=== PATIENT | female | born 1950 | race Caucasian/White ===

== ENCOUNTER 2017-10-05 10:20 | Emergency (ER) | payer MEDICARE, BC ==
[2017-10-05] MEDS: SODIUM CHLORIDE 0.9% FLUSH 10 ML SOL IV PRN ×2 (10:25→12:15)
[2017-10-05] MEDS ORDERED: SODIUM CHLORIDE 0.9% 1000ML 1,000 ML IV ONE ×2 (10:30→12:25)
[2017-10-05 10:31] LABS: BASOPHILS % (AUTO) 1 % (0-3); EOSINOPHILS % (AUTO) 1 % (0-9); HEMATOCRIT 32 % (35-47); MEAN CORPUSCULAR HGB CONC 33.5 gm/dl (32.0-36.0); MONOCYTES % (AUTO) 7.1 % (0-12); NEUTROPHILS % (AUTO) 57.8 % (37-80)
[2017-10-05 10:35] LABS: MEAN CORPUSCULAR VOLUME 81 fL (81-99)
[2017-10-05] MEDS ORDERED: DILTIAZEM 5 MG/ML SOL IV ONE ×4 (10:42→16:05)
[2017-10-05 10:51] LABS: CALCIUM 8.8 mg/dl (8.5-10.1); THYROID STIMULATING HORMONE 1.15 uIU/ml (0.358-3.740)
[2017-10-05] MEDS ORDERED: METOPROLOL TARTRATE 25 MG TAB PO ONE (11:45)
[2017-10-05] MEDS ORDERED: METOPROLOL TARTRATE 25 MG TAB ONE (11:47)
[2017-10-05] MEDS ORDERED: METOPROLOL TARTRATE 5 MG/5 ML SOL IV ONE ×2 (12:07→12:09)
[2017-10-05 14:49] LABS: APPEARANCE,URINE Clear; BILIRUBIN,URINE NEGATIVE (NEGATIVE); COLOR,URINE Yellow; GLUCOSE, URINE (UA) NEGATIVE (NEGATIVE); KETONES,URINE NEGATIVE (NEGATIVE); LEUKOCYTE ESTERASE ,URINE NEGATIVE (NEGATIVE); NITRATE,URINE NEGATIVE (NEGATIVE); OCCULT BLOOD,URINE TRACE LYSED (NEG-TRACE); PH,URINE 5.5; UROBILINOGEN,URINE 0.2 (0.2-1.0 EU)
[2017-10-05 15:07] LABS: RBC,URINE 0-2 (0-3AV/HPF); WBC,URINE 0-2 (0-5AV/HPF)
[2017-10-05] MEDS ORDERED: DILTIAZEM 5 MG/ML 125 MG in SODIUM CHLORIDE 0.9% 100 ML 100 ML IV SCH (16:15)
[2017-10-05 16:32] VITALS: TEMP 97.9
[2017-10-05] MEDS ORDERED: SODIUM CHLORIDE 0.9% 500 ML 500 ML IV ONE (17:00)
[2017-10-05 17:18] VITALS: PULSE 95
[2017-10-05 17:38] VITALS: O2SAT 100
[2017-10-05 18:22] VITALS: BP 117/83; RESP 16
== END 2017-10-05 18:00 | disposition short-term general hospital (02) | DRG 310 ==
LOC: ED 10:20
DX: I47.1 Supraventricular tachycardia (principal); I48.91 Unspecified atrial fibrillation; R06.02 Shortness of breath; R79.89 Other specified abnormal findings of blood chemistry
CPT/HCPCS: 36415; 80048; 81001; 82550; 83880; 84443; 84484; 85025; 93005; 96365; 96366; 96374; 96375; 99285; 99291

== ENCOUNTER 2018-05-29 11:02 | Inpatient (IN) | payer MEDICARE, BC ==
[2018-05-29] MEDS ORDERED: DILTIAZEM 5 MG/ML SOL IV ONE ×5 (11:09→11:37)
[2018-05-29 11:15] LABS: BASOPHILS % (AUTO) 1 % (0-3); EOSINOPHILS % (AUTO) 1 % (0-9); HEMATOCRIT 32 % (35-47); HEMOGLOBIN 9.8 gm/dl (12.0-15.5); LYMPHOCYTES % (AUTO) 20.95 % (10-50); MEAN CORPUSCULAR HEMOGLOBIN 24.2 pg (27.0-32.0); MONOCYTES % (AUTO) 7.2 % (0-12); NEUTROPHILS % (AUTO) 69.4 % (37-80)
[2018-05-29 11:28] LABS: MEAN CORPUSCULAR VOLUME 78 fL (81-99)
[2018-05-29 11:37] LABS: ANISOCYTOSIS MOD AMT; CALCIUM 8.3 mg/dl (8.5-10.1); CARBON DIOXIDE 24.9 mEq/L (21-32); CREATININE 0.86 mg/dl (0.60-1.00); TROP I 0.06 ng/ml (0.000-0.056)
[2018-05-29] MEDS: DILTIAZEM 5 MG/ML 125 MG in SODIUM CHLORIDE 0.9% 100 ML 100 ML IV SCH ×2 (11:47→20:41)
[2018-05-29] MEDS ORDERED: SODIUM CHLORIDE 0.9% FLUSH 10 ML SOL IV PRN (12:03)
[2018-05-29] MEDS ORDERED: PATIENT EDUCATION 1 MISC PRN (20:20)
[2018-05-29] MEDS ORDERED: RIVAROXABAN 10 MG TAB PO ONE (20:48)
[2018-05-29] MEDS ORDERED: RIVAROXABAN 20 MG TAB PO SCH (21:00)
[2018-05-29] MEDS ORDERED: METOPROLOL SUCCINATE 50 MG ER TAB PO SCH (21:00)
[2018-05-29] MEDS ORDERED: ALLOPURINOL 100 MG TAB PO SCH (21:00)
[2018-05-30] MEDS: DILTIAZEM 5 MG/ML 125 MG in SODIUM CHLORIDE 0.9% 100 ML 100 ML IV SCH (04:12)
[2018-05-30 04:18] VITALS: RESP 20
[2018-05-30 09:59] VITALS: TEMP 97.5
[2018-05-30] MEDS ORDERED: SODIUM CHLORIDE 0.9% 1000ML 1,000 ML IV ONE (12:53)
[2018-05-30 13:07] VITALS: BP 112/88; PULSE 105; O2SAT 97
[2018-05-30] MEDS ORDERED: DILTIAZEM 5 MG/ML SOL IV ONE (13:44)
[2018-05-30] MEDS ORDERED: DILTIAZEM IV SCH (14:00)
[2018-05-30] MEDS ORDERED: SODIUM CHLORIDE 0.9% IV SCH (14:00)
[2018-05-30] MEDS ORDERED: RIVAROXABAN 10 MG TAB PO SCH (21:00)
== END 2018-05-30 13:55 | disposition short-term general hospital (02) | DRG 310 ==
LOC: ED 11:02 → ACUTE CARE 13:12 → ED 13:12
PROVIDERS: ADMIT Family Medicine; ATTEND Family Medicine
DX: I48.91 Unspecified atrial fibrillation (principal)
CPT/HCPCS: 36415; 71045; 80048; 84484; 85025; 93005; 93012; 96365; 96374; 99283; 99285; A9270-GY; J3490

== ENCOUNTER 2019-03-20 10:02 | Emergency (ER) | payer BC, MEDICARE, OTHER ==
[2019-03-20] MEDS ORDERED: ADENOSINE 3 MG/ML SOL IV ONE ×2 (10:39→10:43)
[2019-03-20] MEDS ORDERED: ADENOSINE 3 MG/ML SOL IV PRN (10:39)
[2019-03-20 10:46] LABS: BASOPHILS % (AUTO) 1 % (0-3); EOSINOPHILS % (AUTO) 1 % (0-9); HEMATOCRIT 37 % (35-47); HEMOGLOBIN 11.5 gm/dl (12.0-15.5); LYMPHOCYTES % (AUTO) 23.6 % (10-50); MEAN CORPUSCULAR HEMOGLOBIN 23.5 pg (27.0-32.0); MEAN CORPUSCULAR HGB CONC 30.9 gm/dl (32.0-36.0); MONOCYTES % (AUTO) 7.9 % (0-12); NEUTROPHILS % (AUTO) 66.1 % (37-80)
[2019-03-20] MEDS ORDERED: DILTIAZEM 5 MG/ML SOL IV ONE ×4 (10:54→11:10)
[2019-03-20 10:59] LABS: BILIRUBIN,TOTAL 0.6 mg/dl (0.2-1.0); CARBON DIOXIDE 23.8 mEq/L (21-32); CREATININE 0.77 mg/dl (0.60-1.00); INR 1.25 (0.86-1.12); POTASSIUM 4.1 mMol/L (3.5-5.1); TOTAL PROTEIN 7.3 gm/dl (6.4-8.2)
[2019-03-20 11:00] LABS: TROP I 0.205 ng/ml (0.000-0.056)
[2019-03-20 11:01] VITALS: TEMP 97.2
[2019-03-20] MEDS ORDERED: SODIUM CHLORIDE 0.9% FLUSH 10 ML SOL IV PRN (11:03)
[2019-03-20] MEDS ORDERED: SODIUM CHLORIDE 0.9% 1000ML 1,000 ML IV ONE (11:03)
[2019-03-20 11:09] LABS: MEAN CORPUSCULAR VOLUME 76 fL (81-99)
[2019-03-20 11:10] LABS: ANISOCYTOSIS SLIGHT AMT; OVALOCYTES PRESENT; POIKILOCYTOSIS SLIGHT AMT
[2019-03-20] MEDS ORDERED: DILTIAZEM 5 MG/ML 125 MG in SODIUM CHLORIDE 0.9% 100 ML 100 ML IV SCH (11:15)
[2019-03-20] MEDS ORDERED: PROPOFOL 10 MG/ML 200 MG/20 ML EMU IV ONE (13:19)
[2019-03-20] MEDS ORDERED: SODIUM CHLORIDE 0.9% 250 ML 250 ML IV ONE (13:31)
[2019-03-20 15:21] VITALS: BP 112/80; PULSE 52; RESP 16; O2SAT 97
== END 2019-03-20 15:08 | disposition home or self-care (01) | DRG 310 ==
LOC: ED 10:02
DX: I47.1 Supraventricular tachycardia (principal); R79.89 Other specified abnormal findings of blood chemistry; I50.9 Heart failure, unspecified; Z79.01 Long term (current) use of anticoagulants
CPT/HCPCS: 36415; 71045; 80053; 83735; 83880; 84443; 84484; 85025; 85610; 85730; 93005; 96365; 96366; 96374; 96375; 99285; 99291; J0153; J2704; J3490

== ENCOUNTER 2019-05-11 09:04 | Emergency (ER) | payer OTHER ==
[2019-05-11 09:23] VITALS: TEMP 98.2
[2019-05-11] MEDS ORDERED: DILTIAZEM 5 MG/ML SOL IV ONE ×2 (09:31)
[2019-05-11] MEDS ORDERED: SODIUM CHLORIDE 0.9% 1000ML 1,000 ML IV SCH (09:45)
[2019-05-11 09:54] LABS: HEMATOCRIT 38 % (35-47); HEMOGLOBIN 12.1 gm/dl (12.0-15.5); MEAN CORPUSCULAR HEMOGLOBIN 24.7 pg (27.0-32.0); MEAN CORPUSCULAR HGB CONC 31.8 gm/dl (32.0-36.0)
[2019-05-11 10:15] LABS: CALCIUM 8.6 mg/dl (8.5-10.1); CARBON DIOXIDE 24.9 mEq/L (21-32); CREATININE 0.56 mg/dl (0.60-1.00); MAGNESIUM 1.8 mg/dl (1.8-2.4); POTASSIUM 3.9 mMol/L (3.5-5.1); THYROID STIMULATING HORMONE 2.233 uIU/ml (0.358-3.740); TROP I 0.108 ng/ml (0.000-0.056)
[2019-05-11 10:16] LABS: MEAN CORPUSCULAR VOLUME 78 fL (81-99)
[2019-05-11 10:17] LABS: ANISOCYTOSIS SLIGHT AMT; BAND NEUTROPHILS % (MANUAL) 0 %; BASOPHILS % (MANUAL) 0 % (0-3); EOSINOPHILS % (MANUAL) 0 % (0-9); LYMPHOCYTES % (MANUAL) 32 % (10-50); MONOCYTES % (MANUAL) 5 % (0-12); NEUTROPHILS % (MANUAL) 63 % (37-80)
[2019-05-11] MEDS ORDERED: MIDAZOLAM 2 MG/2 ML SOL ONE (11:01)
[2019-05-11] MEDS ORDERED: FENTANYL 100MCG/2ML SOL ONE (11:01)
[2019-05-11] MEDS ORDERED: SODIUM CHLORIDE 0.9% FLUSH 10 ML SOL IV PRN (12:10)
[2019-05-11 13:18] VITALS: RESP 17
[2019-05-11 13:57] VITALS: BP 116/82; PULSE 56; O2SAT 100
== END 2019-05-11 13:54 | disposition home or self-care (01) | DRG 310 ==
LOC: ED 09:04
DX: I48.2 Chronic atrial fibrillation (principal)
CPT/HCPCS: 36415; 80048; 83735; 84443; 84484; 85007; 85027; 93005; 96365; 96366; 96374; 99284; 99285; J2250; J3010; J3490

== ENCOUNTER 2019-06-05 08:57 | Emergency (ER) | payer OTHER ==
[2019-06-05 09:20] VITALS: TEMP 97.2
[2019-06-05] MEDS ORDERED: ASPIRIN 81 MG CHEWABLE CTB PO STA (09:37)
[2019-06-05] MEDS ORDERED: SODIUM CHLORIDE 0.9% FLUSH 10 ML SOL IV PRN (09:37)
[2019-06-05 09:51] LABS: BASOPHILS % (AUTO) 1 % (0-3); EOSINOPHILS % (AUTO) 1 % (0-9); HEMATOCRIT 41 % (35-47); HEMOGLOBIN 12.9 gm/dl (12.0-15.5); LYMPHOCYTES % (AUTO) 23.9 % (10-50); MEAN CORPUSCULAR HEMOGLOBIN 24.7 pg (27.0-32.0); MEAN CORPUSCULAR HGB CONC 31.1 gm/dl (32.0-36.0); MONOCYTES % (AUTO) 6.6 % (0-12); NEUTROPHILS % (AUTO) 67.4 % (37-80)
[2019-06-05 09:53] LABS: MEAN CORPUSCULAR VOLUME 79 fL (81-99)
[2019-06-05] MEDS ORDERED: ASPIRIN 81 MG CHEWABLE CTB ONE (09:53)
[2019-06-05 09:56] LABS: INR 1.13 (0.87-1.13)
[2019-06-05 10:03] LABS: ALBUMIN 3.9 gm/dl (3.4-5.0); BILIRUBIN,TOTAL 0.4 mg/dl (0.2-1.0); CARBON DIOXIDE 24.2 mEq/L (21-32); CREATININE 0.59 mg/dl (0.60-1.00); TOTAL PROTEIN 7.4 gm/dl (6.4-8.2); TROP I 0.103 ng/ml (0.000-0.056)
[2019-06-05 10:11] LABS: ANISOCYTOSIS SLIGHT AMT; BURR CELLS PRESENT; POIKILOCYTOSIS SLIGHT AMT
[2019-06-05 10:32] LABS: APPEARANCE,URINE Clear; BILIRUBIN,URINE NEGATIVE (NEGATIVE); COLOR,URINE Yellow; GLUCOSE, URINE (UA) NEGATIVE (NEGATIVE); KETONES,URINE NEGATIVE (NEGATIVE); LEUKOCYTE ESTERASE ,URINE NEGATIVE (NEGATIVE); NITRATE,URINE NEGATIVE (NEGATIVE); OCCULT BLOOD,URINE NEGATIVE (NEG-TRACE); UROBILINOGEN,URINE 0.2 (0.2-1.0 EU)
[2019-06-05 10:44] LABS: BACTERIA NEGATIVE (< 1+); CRYSTALS NEGATIVE (0-3 AVE/HPF); EPITHELIAL CELLS 0-3 (SQUAMOUS); RBC,URINE NEG (0-3AV/HPF); WBC,URINE NEG (0-5AV/HPF)
[2019-06-05] MEDS: SODIUM CHLORIDE 0.9% 1000ML 1,000 ML IV ONE ×2 (11:40→12:00)
[2019-06-05] MEDS ORDERED: FENTANYL 100MCG/2ML SOL ONE (11:43)
[2019-06-05] MEDS ORDERED: PROPOFOL 10 MG/ML 200 MG/20 ML EMU IV ONE (11:43)
[2019-06-05] MEDS ORDERED: SODIUM CHLORIDE 0.9% 1000ML 1,000 ML IV ONE (11:45)
[2019-06-05 12:42] VITALS: RESP 20
[2019-06-05 12:49] VITALS: BP 105/62; PULSE 48; O2SAT 95
== END 2019-06-05 13:04 | disposition home or self-care (01) | DRG 310 ==
LOC: ED 08:57
DX: I48.2 Chronic atrial fibrillation (principal); I50.9 Heart failure, unspecified
CPT/HCPCS: 71045; 80053; 81001; 83880; 84484; 85025; 85610; 85730; 92960; 93005; 96365; 99285; J3010; J2704